=== PATIENT | male | born 1965 | race Two or more races ===

== ENCOUNTER 2017-08-12 17:29 | Observation (INO) | payer MEDICARE, MEDICAID ==
[~2017-08-12] VITALS: Ht 172.7 cm; Wt 93.0 kg
[2017-08-13 00:58] LABS: Basophils # (auto) 0 uL; Basophils % (auto) 0.6 % (0.0-2.0); Eosinophils # (auto) 0.2 uL; Eosinophils % (auto) 2.7 % (0.0-7.0); Hematocrit 43.5 % (41.0-53.0); Hemoglobin 14.9 g/dL (13.5-17.5); Lymphocytes # (auto) 2.3 uL; Lymphocytes % (auto) 27.3 % (10.0-50.0); Mean Corpuscular Hemoglobin 30.7 pg (28.0-32.0); Mean Corpuscular Hgb Conc. 34.3 g/dL (32.0-36.0); Mean Corpuscular Volume 89.3 fL (80.0-100.0); Monocytes # (auto) 0.7 uL; Monocytes % (auto) 8.8 % (0.0-12.0); Neutrophils # (auto) 5.2 uL; Neutrophils % (auto) 60.6 % (37.0-80.0); Platelet Count (auto) 259 10^3/uL (140-450); Red Blood Cells 4.87 10^6/uL (4.5-5.90); Red Cell Distribution Width 13.1 % (11.8-14.3); White Blood Cell 8.5 10^3/uL (4.4-10.8)
[2017-08-13 01:06] VITALS: BP 149/103
[2017-08-13 01:18] LABS: Alanine Aminotransferase 36 U/L (16-61); Albumin 3.6 g/dL (3.4-5.0); Anion Gap 9 (5-15); Aspartate Aminotransferase 16 U/L (15-37); BUN/Creatinine Ratio 7.8; Blood Urea Nitrogen 8 mg/dL (7-18); Calcium 8.6 mg/dL (8.5-10.1); Carbon Dioxide 25 mmol/L (21-32); Chloride 105 mmol/L (98-107); GFR African American 97 mL/min; GFR Non-African American 80 mL/min; Glucose 103 mg/dL (74-106); Magnesium 2.4 mg/dL (1.6-2.6); Potassium 3.5 mmol/L (3.5-5.1); Sodium 139 mmol/L (136-145)
[2017-08-13 01:21] LABS: Alkaline Phosphatase 62 U/L (45-117); Bilirubin, Total 0.2 mg/dL (0.2-1.0); Total Protein 7.2 g/dL (6.4-8.2)
[2017-08-13] MEDS ORDERED: cloNIDine HCL 0.1 MG TAB PO ONE (01:30)
== END 2017-08-13 01:58 | disposition home or self-care (01) | DRG 305 ==
LOC: ER 17:29 → OVERFLOW 23:34 → ER 08-13 01:58
PROVIDERS: ADMIT Emergency Medicine; ATTEND Emergency Medicine
DX: I10 Essential (primary) hypertension (principal); J45.909 Unspecified asthma, uncomplicated
CPT/HCPCS: 36415; 71045; 80053; 83735; 83880; 84484; 85025; 93005; 99285; G0378

== ENCOUNTER 2024-11-03 22:24 | Emergency (ER) | payer MEDICARE, MEDICAID ==
[~2024-11-03] VITALS: Ht 172.7 cm; Wt 94.6 kg
--- NOTE | 2024-11-03 23:07 | DVH ---
EXAM: XY CHEST PORTABLE DATE OF SERVICE: 11/03/2024 10:55 PM INDICATION: chest pain TECHNIQUE: Single frontal view. COMPARISON: None FINDINGS: Bibasilar subsegmental atelectasis. No focal consolidations. No pleural effusion or pneumothorax. Cardiac silhouette is within normal limits. IMPRESSION: 1. No focal consolidations.
[2024-11-03 23:30] LABS: Hematocrit 45.9 % (41.0-53.0); Hemoglobin 15.7 g/dL (13.5-17.5); Mean Corpuscular Hemoglobin 30.0 pg (28.0-32.0); Mean Corpuscular Volume 87.6 fL (80.0-100.0); Nucleated Red Blood Cells % 0.0 %
[2024-11-03 23:38] LABS: Chloride 102 mmol/L (98-107); Potassium 3.9 mmol/L (3.5-5.1); Sodium 137 mmol/L (136-145)
[2024-11-03 23:39] LABS: Anion Gap 12 (5-15); Carbon Dioxide 23 mmol/L (20-31)
[2024-11-03 23:40] LABS: Calcium 9.6 mg/dL (8.7-10.4)
--- NOTE | 2024-11-03 23:41 | ED.PDOC ---
History of Present Illness HPI Comments 59 y/o obese M presents with c/c hypertension, with associated left chest wall tightness, headache, and dizziness. Patient is a poor historian. Significant history for asthma, DM - on Metformin, and HTN - on Hydralazine and Lisinopril. He endorses on checking and noticing his blood pressure being elevated at 180's/110's at home following onset of other aforementioned symptoms, earlier, this evening. Patient reports being compliant with his medications. 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 No recent injuries, known, sick contact, or further pertinent history endorsed. Denies any shortness of breath, nausea, vomiting, or further associated symptoms. Chief Complaint: High Blood Pressure Time Seen by MD: 22:45 Primary Care Provider: n/a Reviewed Notes: Nurses Notes, Medications, Allergies Allergies: Coded Allergies: Acetaminophen (Verified Allergy, Unknown, 11/03/24) Hydrocodone (Verified Allergy, Unknown, 11/03/24) Information Source: Patient Mode of Arrival: Ambulatory Severity: Moderate Timing: Hours Duration: Since onset Prehospital treatment: None Past Medical History PAST MEDICAL HISTORY: Asthma, DM (Metformin), HTN (on Hydralazine and Lisinopril) Surgical History: Denies all surgeries Family History Family History: Unobtainable Social History Smoker: Non-Smoker Alcohol: Denies ETOH Use Drugs: Cocaine Lives In: Home All Other Systems: Reviewed and Negative (Comprehensive systems review obtained and negative except for what is stated in the HPI.) Physical Exam General Appearance: No Apparent Distress, Obese HEENT: Normal ENT Inspection, Pharynx Normal, TMs Normal Neck: Full Range of Motion, Non-Tender, Normal, Normal Inspection Respiratory: Chest Non-Tender, Lungs Clear, No Accessory Muscle Use, No Respiratory Distress, Normal Breath Sounds Cardiovascular: No Edema, No JVD, No Murmur, No Gallop, Normal Peripheral Pulses, Regular Rate/Rhythm Breast Exam: Deferred Gastrointestinal: No Organomegaly, Non Tender, No Pulsatile Mass, Normal Bowel Sounds, Soft Genitalia: Deferred Pelvic: Deferred Rectal: Deferred Extremities: No calf tenderness, Normal capillary refill, Normal inspection, Normal range of motion, Non-tender, No pedal edema Musculoskeletal : Apperance: Normal Neurologic: Alert, it integration architect II-XII nml as Tested, No Motor Deficits, Normal Affect, Normal Mood, No Sensory Deficits Cerebellar Function: Normal Reflexes: Normal Skin: Dry, Normal Color, Warm Lymphatic: No Adenopathy Was a procedure done? Was a procedure done?: No EKG EKG : Pulse Rate (adult): 101 [place]: Normal Cardiac Rhythm: ST Block: None Hypertrophy: None ST: Normal Differential Dx Considerations may include: HTN emergency, inappropriate medication dosage, anxiety-induced hypertension, dehydration, electrolyte imbalance, UT, PE, ACS, URI, PNA, among others X-Ray, Labs, Meds, VS Vital Signs Date Time Temp Pulse Resp B/P (MAP) Pulse Ox O2 Delivery O2 Flow Rate FiO2 11/03/24 23:41 101 11/03/24 22:44 101 11/03/24 22:35 98.2 102 16 152/95 (114) 99 98.2 Lab Test 11/03/24 23:05 Range/Units White Blood Count 13.6 H 4.4-10.8 10^3/uL Red Blood Count 5.24 4.5-5.90 10^6/uL Hemoglobin 15.7 13.5-17.5 g/dL Hematocrit 45.9 41.0-53.0 % Mean Corpuscular Volume 87.6 80.0-100.0 fL Mean Corpuscular Hemoglobin 30.0 28.0-32.0 pg Mean Corpuscular Hemoglobin Concent 34.3 32.0-36.0 g/dL Red Cell Distribution Width 13.8 11.8-14.3 % Platelet Count 276 140-450 10^3/uL Mean Platelet Volume 7.8 6.9-10.8 fL Neutrophils (%) (Auto) 76.7 37.0-80.0 % Lymphocytes (%) (Auto) 15.0 10.0-50.0 % Monocytes (%) (Auto) 7.1 0.0-12.0 % Eosinophils (%) (Auto) 0.8 0.0-7.0 % Basophils (%) (Auto) 0.4 0.0-2.0 % Neutrophils # (Auto) 10.4 H 1.6-8.6 10 ^3/uL Lymphocytes # (Auto) 2.0 0.4-5.4 10 ^3/uL Monocytes # (Auto) 1.0 0-1.3 10 ^3/uL Eosinophils # (Auto) 0.1 0-0.8 10 ^3/uL Basophils # (Auto) 0.1 0-0.2 10 ^3/uL Nucleated Red Blood Cells 0.0 % Sodium Level 137 136-145 mmol/L Potassium Level 3.9 3.5-5.1 mmol/L Chloride Level 102 98-107 mmol/L Carbon Dioxide Level 23 20-31 mmol/L Anion Gap 12 5-15 Blood Urea Nitrogen 12 9-23 mg/dL Creatinine 1.10 0.700-1.30 mg/dL Glomerular Filtration Rate Calc 76 >90 mL/min BUN/Creatinine Ratio 10.9 10.0-20.0 Serum Glucose 231 H 74-106 mg/dL Calcium Level 9.6 8.7-10.4 mg/dL Troponin I High Sensitivity < 3 L </=54 ng/L [place] [id number] Ph: [phone] DIAGNOSTIC IMAGING Diagnostic Imaging Report : [id number] Signed PATIENT: FRANCISCO J JAIME ACCT: [id number] UNIT: [id number] : 1965 LOC: ER ROOM / BED: / AGE / SEX: 59 / M ADM STATUS: REG ER SERVICE 53 ORDERING PHYSICIAN: NICOLE MCDOWELL MD PROCEDURE(s): CXRP - CHEST PORTABLE REASON: chest pain ORDER NUMBER(s): [id number], ACCESSION NUMBER(s): [id number] EXAM: XY CHEST PORTABLE DATE OF SERVICE: 11/03/2024 10:55 PM INDICATION: chest pain TECHNIQUE: Single frontal view. COMPARISON: None FINDINGS: Bibasilar subsegmental atelectasis. No focal consolidations. No pleural effusion or pneumothorax. Cardiac silhouette is within normal limits. IMPRESSION: 1. No focal consolidations. ATED BY: JERROD VILLELA MD DICTATED DATE/TIME: 11/03/242303 SIGNED BY: JERROD VILLELA MD SIGNED DATE/TIME: 11/03/242303 CC: Time of 1ST Reevaluation: 23:15 Reevaluation 1ST: Unchanged Patient Education/Counseling: Diagnosis, Treatment, Need For Follow Up Family Education/Counseling: No Family Present Additional Information Previous visits reviewed:August 12, 2017 encounter for possibly high blood pressure The following tests were ordered, and results were reviewed by me: CXR, EKG, CBC, BMP, troponin Additional Information was gathered from interviewing the following independent historians: N/A I reviewed and agreed with the following test results read by other providers: CXR I discussed treatment and results with medical personnel and: patient SEPSIS Sepsis Screen Date sepsis recognized/suspect: Nov 03, 2024 Time Sepsis recognized/suspect: 2234 Recent Procedure: No On Antibiotic Therapy: No Respiratory Rate >20: No Heart Rate >90: Yes Temp<36 C (96.8 F) or >38.3 C: No SBP <90 or MAP <65 mmHG: No New Acute Mental Status Change: No Is the patient on CPAP, BIPAP,: No Physician Orders Chest Portable (11/03/24 22:54) Troponin-I Hs (11/03/24 23:54) Troponin-I Hs (11/04/24 01:54) Electrocardigram (11/03/24 22:57) Vital Signs Date Time Temp Pulse Resp B/P (MAP) Pulse Ox O2 Delivery O2 Flow Rate FiO2 11/03/24 23:41 101 11/03/24 22:44 101 11/03/24 22:35 98.2 102 16 152/95 (114) 99 98.2 Laboratory Tests Test 11/03/24 23:05 White Blood Count 13.6 10^3/uL (4.4-10.8) H Departure 1 Departure Time of Disposition: 00:10 (Patient presented with chest pain that was concerning for possible STEMI, ACS, PE, Pneumonia, Muscle Strain, COPD, Dissection. Data: 1. I ordered and reviewed the result of at least 3 labs including a CBC, BMP, and Troponin. 2. I independently interpreted the following tests: EKG which shows normal sinus rhythm and Chest X-ray which shows a benign chest.Risk:This patient presented with a high risk of morbidity due to further diagnostic testing or treatment and may suffer from an acute cardiac or respiratory disorder. After review of all the data patient is unlikely to have a pe , dissection, and is low risk for acs. Patient is stable at this time.Workup so far is benign and patient will be discharged with outpatient followup. ) Impression: Primary Impression: Acute chest pain Disposition: HOME / SELF CARE / HOMELESS Condition: Stable Additional Instructions: You presented today with chest pain. Your workup today was benign including labs, troponin, EKG, chest x-ray. Your pain may be from musculoskeletal strain, acid reflux, anxiety, or many other factors. It is important to follow up with your regular doctor within 1 week. If your symptoms worsen or you have any other concerns please return to the emergency room. Discharged With: Self Critical Care Note Critical Care Time?: Yes Critical care comment: Acute chest pain Authorized and Performed by: Nicole Mcdowell MD Total critical care time: Approximately 36 minutes Due to a high probability of clinically significant, life threatening deterioration, the patient required my highest level of preparedness to intervene emergently and I personally spent this critical care time directly and personally managing the patient. This critical care time included obtaining a history; examining the patient; pulse oximetry; ordering and review of studies; arranging urgent treatment with development of a management plan; evaluation of patient's response to treatment; frequent reassessment; and, discussions with other providers. This critical care time was performed to assess and manage the high probability of imminent, life-threatening deterioration that could result in multi-organ failure. It was exclusive of separately billable procedures and treating other patients and teaching time. Please see my other sections and the rest of the note for further information on patient assessment and treatment. Stability Stability form required: No Heart Score Heart Score: Heart Score Response (Comments) Value History Slightly Suspicious 0 EKG Normal 0 Age 45-64 1 Risk Factors 1 or 2 risk factors 1 Troponin Normal limit 0 Total 2 I personally scribed for NICOLE MCDOWELL MD ([email or web address]) on 11/03/24 at 23:41. Electronically submitted by Flip Dodd ([email or web address]). NICOLE MCDOWELL MD Nov 03, 2024 23:41
[2024-11-03 23:44] LABS: BUN/Creatinine Ratio 10.9 (10.0-20.0); Blood Urea Nitrogen 12 mg/dL (9-23)
[2024-11-03 23:51] LABS: Glucose 231 mg/dL (74-106)
[2024-11-04 01:09] VITALS: BP 136/85; PULSE 75; RESP 12; TEMP 97.6; O2SAT 97
--- NOTE | 2024-11-05 07:50 | ECG ---
[facility] Test Date: 2024-11-03 Test Time: 22:44:29 Pat Name: TAMICA JAIME Department: ER Room: Gender: M Hydraulic Technician: LISA : 1965 Requested By: NICOLE BORREGO Order Number: [id number] Reading MD: Enoc Loyola Measurements Intervals [place] Rate: 101 P: 22 AL: 151 QRS: 2 QRSD: 94 T: 29 QT: 348 QTc: 452 Interpretive Statements Sinus tachycardia Probable left atrial enlargement Electronically Signed On 11-05-2024 16:59:31 PDT by Enoc Loyola Please click the below link to view image of tracing.
--- NOTE | 2024-11-05 15:02 | ECG ---
[facility] Test Date: 2024-11-03 Test Time: 22:41:57 Pat Name: TAMICA JAIME Department: ER Room: Gender: M Compliance Paralegal: LISA : 1965 Requested By: NICOLE BORREGO Order Number: [id number] Reading MD: Enoc Loyola Measurements Intervals [place] Rate: 100 P: 22 AL: 152 QRS: 4 QRSD: 91 T: 23 QT: 343 QTc: 443 Interpretive Statements Incomplete analysis due to missing data in precordial lead(s) Sinus tachycardia Missing lead(s): V1,V2 Electronically Signed On 11-05-2024 16:59:28 PDT by Enoc Loyola Please click the below link to view image of tracing.
== END 2024-11-04 01:15 | disposition home or self-care (01) ==
LOC: ER 22:24
DX: R07.89 Other chest pain (principal); F12.90 Cannabis use, unspecified, uncomplicated; J45.909 Unspecified asthma, uncomplicated; E11.9 Type 2 diabetes mellitus without complications; I10 Essential (primary) hypertension; E66.9 Obesity, unspecified; Z88.5 Allergy status to narcotic agent; Z68.31 Body mass index [BMI] 31.0-31.9, adult
CPT/HCPCS: 36415; 71045; 80048; 84484; 85025; 93005